=== PATIENT | female | born 1970 | race Caucasian/White ===

== ENCOUNTER 2022-09-01 06:33 | Day surgery (SDC) | payer OTHER, SELFPAY ==
[2022-08-28 09:30] VITALS: BMI 41.5
[2022-09-01] VITALS (7 sets, daily range): BP systolic 127–140; BP diastolic 63–83; PULSE 70–98; RESP 14–21; TEMP 36.4–36.7; O2SAT 96–100; BMI 41.5
--- NOTE | 2022-09-01 | PATH_ITS ---
[facility] Accession Number: [id number] No. of containers..01 Tissue . 01 Material submitted: . gallbladder - GALLBLADDER . 01 Diagnosis: Gallbladder, Cholecystectomy: Mucosal atrophy with fibrosis, consistent with hyalinizing chronic cholecystitis. Cholelithiasis. Negative for dysplasia and malignancy. MRV 09/03/2022 1809 Local . 01 Electronically signed: . Naomie Keller MD, Pathologist NPI- [id number] . 01 Gross description: . The specimen is received in formalin labeled with the patient's name, , and gallbladder, and consists of a disrupted gallbladder measuring 9.8 x 5.0 x 2.0 cm. The serosa is yuan and rough while the hepatic surface is rough and unremarkable. The cystic duct is received closed with a clamp, is inked blue, and no pericystic lymph node is identified. The lumen contains numerous yellow-orange bosselated calculi measuring up to 0.5 cm in greatest dimension grossly obstructing the cystic duct, admixed with yuan viscous bile. The mucosa is yuan, wrinkled, and trabecular with no areas of discoloratoin, polyps, or lesions identified. The woodard average 0.1 cm thick and electronics parts sales representative sections to include the cystic duct margin and full thickness sections are submitted in cassette A1. ([id number]) /[place] 09/02/2022 1030 Local . 01 Pathologist provided ICD-10: K80.20 . 01 CPT . 572368 Specimen Comment: A courtesy copy of this report has been sent to [phone] Performed at: 01 [facility] [address] [place] [address] [address], [place], [place] [id number] MD Manuel Mora MD Phone: [phone]
[2022-09-01] MEDS: SCOPOLAMINE 1 PATCH TOP (07:06)
[2022-09-01] MEDS: LACTATED RINGERS 1,000 ML 42 ML IV (07:12)
--- NOTE | 2022-09-01 07:42 | PM.HP.1 ---
History of Present Illness History of Present Illness Date Patient Seen: 09/01/22 Time Patient Seen: 07:42 Chief complaint: Laparoscopic Cholecystectomy Narrative: Neisha comes in for her laparoscopic cholecystectomy. She has continued to have only mild pressure type pain since our visit in January. See the office note from last January for details. [facility] Medical History (Updated 08/28/22 @ 09:26 by Emerald Austin RN) Arthritis Easy bruisability Eczema Elevated cholesterol Family history of colon cancer in mother GERD (gastroesophageal reflux disease) Headache, migraine History of COVID-19 (12/2021) Plantar fasciitis of left foot Pneumonia Sinus drainage Symptomatic cholelithiasis Surgical History (Updated 07/28/22 @ 12:17 by Emerald Austin RN) No history of previous surgery Social History household members: spouse Smoking Status: Never smoker alcohol intake: never Meds Home Medications and Allergies Home Medications Medication Instructions Recorded Confirmed Type famotidine 20 mg tablet 20 mg PO QD-BID 01/28/22 09/01/22 History multivitamin 1 tab PO DAILY 01/28/22 09/01/22 History Allergies Allergy/AdvReac Type Severity Reaction Status Date / Time ethylenediamine Allergy Unknown eczema Verified 09/01/22 06:45 Exam Vital Signs (past 8 hours): - 09/01/22 06:54 Temperature 98.0 F Pulse Rate 70 Respiratory Rate 21 Blood Pressure 127/83 Pulse Oximetry 100 Oxygen Delivery Method Room Air Oxygen Delivery Method Room Air Const General: No acute distress Assessment & Plan Assessment and plan (1) Gallstones: Status: Acute Plan We discussed the risks and benefits of laparoscopic cholecystectomy and she would like to proceed.
[2022-09-01] MEDS: CEFAZOLIN VIAL 3 GM in SODIUM CHLORIDE 0.9% 100 ML IV (07:51)
--- NOTE | 2022-09-01 08:18 | SUR.OPER ---
Supine on padded OR bed, head on pillow, safety belt at thigh, left arm padded and tucked at side. Right arm secured on padded arm board <90 degrees abduction. Legs uncrossed. Padded footboard in place. Tape over blanket to secure lower legs.
[2022-09-01] MEDS: BUPIVACAINE 0.5% (PF) 30 ML, EPINEPHrine 0.15 MG INJ (08:44)
--- NOTE | 2022-09-01 09:07 | PM.OP.1 ---
Operative Date/Time/Diagnoses Date of procedure: 09/01/22 Time of procedure: 09:07 Pre-op diagnosis: Cholelithiasis Post-op diagnosis: same Procedure & Clinicians Procedure: Laparoscopic cholecystectomy Same procedure as scheduled: Yes Surgeon: Joo [employer] Manager: Wade Ballesteros Anesthesia Type: General Operative Notes Procedure in detail: The patient was given preoperative antibiotic. The patient was brought to the operating room, placed on the table in the supine position. General endotracheal anesthesia was induced. The abdomen was prepped and draped. A time-out was performed. We made a 1 cm infraumbilical incision. We dissected down to the base of the umbilical stalk using cautery. We grasped the umbilical stalk with a Maykel clamp to elevate the abdominal wall. We scored the fascia in the midline with cautery 1 cm. We pierced the peritoneum with a Peon clamp. The Riley port was placed and the abdomen was insufflated to 15 mmHg. A 5 mm 30 degree laparoscopic was inserted. There was no evidence of any injury from the entry. Next, we placed 5 mm ports in the subxiphoid position and right upper quadrant at the midclavicular line and anterior axillary line. Patient was then positioned in reverse Trendelenburg and the table was tilted to the left. There were omental adhesions to the dome of the gallbladder taken down with cautery. The gallbladder was tense and distended and needed to be decompressed with a needle and the gallbladder contents were clear consistent with hydrops. Once partially decompressed the gallbladder was grasped at the dome and retracted cephalad. We then dissected the cystic structures with a combination of hook cautery and blunt dissection. We obtained a critical view. We placed clips on the cystic duct and artery and divided the cystic duct and artery sharply between the clips. The gallbladder was then dissected off the liver and placed in a specimen retrieval bag. There was some venous bleeding from the bed of the gallbladder which was controlled with a combination of Surgicel and pressure. We then removed the 5 mm ports under direct vision we removed the Riley port. We then injected some local into the fascia and closed the fascia with 2 interrupted 0 Vicryl sutures. The skin incisions were closed with 4-0 Monocryl and Steri-Strips were applied. Band-Aids were applied over the Steri-Strips. EBL: 75 mL Specimen: Gallbladder Post-operative Condition: stable Disposition: PACU
[2022-09-01] MEDS: OXYCODONE IR 5 MG TABLET PO ×2 (09:47→10:19)
[2022-09-01] MEDS: ACETAMINOPHEN 325 MG TABLET PO (09:47)
[2022-09-01] MEDS: ONDANSETRON 4 MG/2 ML INJ IV ×2 (09:48→10:23)
--- NOTE | 2022-09-01 10:11 | SUR.PHASEII ---
c/o pain to back. requested to sit at side of bed. Moved self with no assistance needed. States pain migrates to right shoulder. Reassured this is appropriate after this surgery. Tolerating PO. Resting, want to DC soon.
--- NOTE | 2022-09-01 10:47 | SUR.PHASEII ---
States she is dizzy and has occasional nausea. no vomiting. IVF WO and taking PO.
--- NOTE | 2022-09-01 11:30 | SUR.PHASEII ---
DC to in WC. remains dizzym took scopolamine patch off. states pain is improved. Instructions discussed with . All belongings with patient
== END 2022-09-01 11:31 | disposition home or self-care (01) ==
PROVIDERS: PCP Physician Assistant; Referring Provider Surgery; Visit Provider Surgery
PROC: 0FT44ZZ Resection of Gallbladder, Percutaneous Endoscopic Approach (ICD-10-PCS; CPT 47562; principal; 2022-09-01 07:45)
DX: K80.10 Calculus of gallbladder with chronic cholecystitis without obstruction (principal)
CPT/HCPCS: 47562; J0171; J0690; J1100; J1170; J1885; J2250; J2405; J2704; J3010